=== PATIENT | male | born 1995 | race Two or more races ===

== ENCOUNTER 2024-12-20 10:46 | Emergency (ER) | payer SELFPAY ==
[~2024-12-20] VITALS: Ht 175.3 cm; Wt 76.0 kg
[2024-12-20 10:48] VITALS: BP 152/89; PULSE 82; RESP 16; TEMP 97.6; O2SAT 96
== END 2024-12-20 11:57 | disposition left against medical advice (07) ==
LOC: ER 10:46
DX: R10.9 Unspecified abdominal pain (principal); Z53.21 Procedure and treatment not carried out due to patient leaving prior to being seen by health care provider